=== PATIENT | female | born 1995 | race African-American/Black ===

== ENCOUNTER 2017-08-16 08:00 | Outpatient (CLI) | payer MEDICAID | END 2017-08-16 08:01 | disposition home or self-care (01) | LOC: LAB.R 08:00 | PROVIDERS: ATTEND Nurse Practitioner Obstetrics & Gynecology | DX: Z11.3 Encounter for screening for infections with a predominantly sexual mode of transmission (principal) | CPT/HCPCS: 87491; 87591 ==

== ENCOUNTER 2017-08-16 16:50 | Outpatient (CLI) | payer MEDICAID ==
[2017-08-16 17:12] LABS: BASOPHILS % (AUTO) 0.2 %; EOSINOPHILS # (AUTO) 0.2 10^3/uL (0.0-0.7); EOSINOPHILS % (AUTO) 1.5 %; HGB - HEMOGLOBIN 10.5 g/dL (12.0-16.0); LYMPHOCYTES # (AUTO) 2.5 10^3/uL (1.5-3.5); LYMPHOCYTES % (AUTO) 21.4 %; MEAN CORPUSCULAR HEMOGLOBIN 25.8 pg (27.0-31.0); MEAN CORPUSCULAR HGB CONC 32.5 g/dL (32.0-36.0); MEAN CORPUSCULAR VOLUME 79.2 fL (81.0-99.0); MEAN PLATELET VOLUME 9.3 fL (7.9-10.8); MONOCYTES # (AUTO) 0.7 10^3/uL (0.0-1.0); MONOCYTES % (AUTO) 5.8 %; NEUTROPHILS # (AUTO) 8.3 10^3/uL (1.5-6.6); NEUTROPHILS % (AUTO) 71.1 %; PLT - PLATELET COUNT 195 10^3/uL (130-450); RED BLOOD COUNT 4.08 10^6/uL (4.20-5.40); RED CELL DISTRIBUTION WIDTH 18.5 % (12.0-15.0); WHITE BLOOD COUNT 11.7 x10^3/uL (4.8-10.8)
[2017-08-16 17:36] LABS: BILIRUBIN,URINE NEGATIVE (NEGATIVE); GLUCOSE, URINE (UA) NEGATIVE (NEGATIVE); KETONES,URINE (UA) NEGATIVE (NEGATIVE); LEUKOCYTE ESTERASE, URINE LARGE (NEGATIVE); NITRITE,URINE NEGATIVE (NEGATIVE); OCCULT BLOOD,URINE NEGATIVE (NEGATIVE); PH,URINE 6.5 PH (5.0-7.5); PROTEIN,URINE NEGATIVE (NEGATIVE); UROBILINOGEN,URINE 0.2 (NORMAL) E.U./dL (NORMAL)
[2017-08-16 17:53] LABS: BACTERIA,URINE Many /HPF (None Seen); CLARITY,URINE CLOUDY (CLEAR); RBC,URINE 0-5 /HPF (0-5); SQUAMOUS EPITHELIAL CELL,UR MANY Squamous (<= Few); TRICHOMONAS,URINE PRESENT (None Seen); WBC CLUMPS,URINE PRESENT
[2017-08-17 11:05] LABS: HEPATITIS B SURFACE ANTIGEN NON-REACTIVE (NON-REACTIVE)
[2017-08-17 15:05] LABS: HEPATITIS C ANTIBODY NON-REACTIVE (NON-REACTIVE); HIV AG/AB 4TH GEN NON-REACTIVE (NON-REACTIVE)
== END 2017-08-16 16:51 | disposition home or self-care (01) ==
LOC: LAB 16:50
PROVIDERS: ATTEND Nurse Practitioner Obstetrics & Gynecology
DX: Z36.9 Encounter for antenatal screening, unspecified (principal)
CPT/HCPCS: 36415; 81001; 81599; 85025; 86762; 86803; 86850; 86900; 86901; 87340; 87389

== ENCOUNTER 2017-08-16 21:47 | Outpatient (CLI) | payer MEDICAID ==
--- NOTE | 2017-08-16 23:26 | Ultrasound Report ---
EXAM: LIMITED OBSTETRICAL ULTRASOUND EARLY SECOND TRIMESTER EXAM DATE: 08/16/2017 10:43 PM. CLINICAL HISTORY: ENCTR FOR SCREENING. Unknown LMP. Confirm dating. Late to seek care. COMPARISON: None. TECHNIQUE: Real-time sonographic evaluation of the fetus performed by the supervisor grinding. Multiple repre sentative static images were saved for review. DATING: EGA 19 weeks 3 days with KALYAN 01/07/2018 based on the current ultrasound. GENERAL EVALUATION Rob . Cardiac activity: 150 bpm. movement: Visualized. Presentation: Breech. Placenta: Anterior position. No evidence for previa. Amniotic fluid: Subjectively normal. MVP 4.3 cm. BIOMETRY Bi-Parietal Diameter (BPD): 4.4 cm, 19 weeks 3 days Head Circumference (HC): 16.4 cm, 19 weeks 1 day Abdominal Circumference (AC): 13.9 cm, 19 weeks 2 days Femur Length (FL): 3.0 cm, 19 weeks 1 day Estimated Weight: 282 g. MATERNAL STRUCTURES Uterus: Unremarkable. Cervix: Long and closed. IMPRESSION: 1. Rob live intrauterine with gestational age 19 weeks 3 days based on current US. 2. size is within expected limits for assigned dating. Note: Detailed anatomic survey at 18-22 weeks is recommended. [facility] Referring Provider Line: [phone] SITE ID: [id number]
--- NOTE | 2017-08-16 23:26 | Ultrasound Preliminary Report ---
Exam: US OB 14+ WEEKS IMPRESSION: 1. Rob live intrauterine with gestational age 19 weeks 3 days based on current US. 2. size is within expected limits for assigned dating. Note: Detailed anatomic survey at 18-22 weeks is recommended. [facility] SITE ID: [id number]
== END 2017-08-16 21:48 | disposition home or self-care (01) ==
LOC: DI 21:47
PROVIDERS: ATTEND Nurse Practitioner Obstetrics & Gynecology
DX: Z36.9 Encounter for antenatal screening, unspecified (principal); Z11.3 Encounter for screening for infections with a predominantly sexual mode of transmission; Z3A.19 19 weeks gestation of pregnancy
CPT/HCPCS: 36415; 76805; 81001; 81599; 85025; 86592; 86762; 86803; 86850; 86900; 86901; 87340; 87389; 87491; 87591

== ENCOUNTER 2017-10-02 12:32 | Outpatient (CLI) | END 2017-10-02 12:33 | disposition home or self-care (01) ==

== ENCOUNTER 2017-10-12 14:36 | Outpatient (CLI) | payer MEDICAID ==
[2017-10-12 15:52] LABS: MEAN CORPUSCULAR HEMOGLOBIN 28.6 pg (27.0-31.0); MEAN CORPUSCULAR HGB CONC 32.7 g/dL (32.0-36.0); MEAN CORPUSCULAR VOLUME 87.3 fL (81.0-99.0); MEAN PLATELET VOLUME 8.9 fL (7.9-10.8); RED BLOOD COUNT 3.5 10^6/uL (4.20-5.40); RED CELL DISTRIBUTION WIDTH 17.5 % (12.0-15.0); WHITE BLOOD COUNT 10.6 x10^3/uL (4.8-10.8)
== END 2017-10-12 14:37 | disposition home or self-care (01) ==
LOC: LAB 14:36
PROVIDERS: ATTEND Registered Nurse
DX: Z34.82 Encounter for supervision of other normal pregnancy, second trimester (principal)
CPT/HCPCS: 36415; 82950; 85027; 86850

== ENCOUNTER 2017-10-14 21:32 | Emergency (ER) | payer MEDICAID ==
[2017-10-14] MEDS ORDERED: predniSONE 20 MG TABLET PO STA (21:47)
--- NOTE | 2017-10-14 21:53 | ED Physician Documentation ---
History of Present Illness - Stated complaint Stated Complaint: HIVES - Chief complaint Chief Complaint: General - History obtained from History obtained from: Patient - History of Present Illness Timing: How many days ago (3) Pain level max: 0 Pain level now: 0 Improved by: nothing Worsened by: nothing - Additonal information Additional information: Patient is a 22-year-old female who is approximately 27 weeks . 3 days ago noticed a diffuse rash over her abdomen and arms as well as her thighs. This is papular in nature. It is itchy. Has not taken anything for this nor contacted her OB. No problems with the . States that this happened during her last as well and improved with a cream. It was not as extensive at that time. No fevers. States did use a new detergent, but stopped using this. Review of Systems Constitutional: denies: Fever, Chills Ears: denies: Ear pain Nose: denies: Rhinorrhea / runny nose, Congestion Throat: denies: Sore throat Cardiac: denies: Chest pain / pressure GI: denies: Nausea, Vomiting, Diarrhea : denies: Dysuria, Frequency, Hesitancy, Now EGA Musculoskeletal: denies: Neck pain, Back pain Neurologic: denies: Headache PD PAST MEDICAL HISTORY - Past Medical History Past Medical History: No - Past Surgical History Past Surgical History: No - Present Medications Home Medications: Ambulatory Orders Medication Instructions Recorded Confirmed Pnv No.122/Iron/Folic Acid 1 each PO 10/14/17 [ Multi Tablet] predniSONE [Prednisone] 40 mg PO DAILY #10 tablet 10/14/17 - Allergies Allergies/Adverse Reactions: Allergies Allergy/AdvReac Type Severity Reaction Status Date / Time No Known Drug Allergies Allergy Verified 10/14/17 21:40 - Living Situation Living Situation: reports: With family Living Arrangement: reports: At home - Social History Does the pt smoke?: No Does the pt drink ETOH?: No PD ED PE NORMAL - Vitals Vital signs reviewed: Yes - General General: Alert and oriented X 3, No acute distress - HEENT HEENT: Moist mucous membranes - Neck Neck: Supple, no meningeal sign - Cardiac Cardiac: RRR - Respiratory Respiratory: No respiratory distress, Clear bilaterally - Abdomen Abdomen: Soft, Non tender, Non distended - Derm Derm: Warm and dry, Other (Diffuse papular exanthem over the bilateral upper extremities, chest abdomen and thighs. Excoriation osorio present. No pustules. ) - Extremities Extremities: No calf tenderness / cord - Neuro Neuro: Alert and oriented X 3 Results - Vitals Vitals: Vital Signs - 24 hr 10/14/17 21:38 Temperature 36.7 C Heart Rate 95 Respiratory 16 Rate Blood Pressure 126/70 O2 Saturation 95 Oxygen O2 Source Room air PD MEDICAL DECISION MAKING - ED course Complexity details: considered differential, d/w patient ED course: Patient is a 22-year-old female who is currently 27 weeks with a diffuse papular exanthem. Unclear etiology. Will trial on steroids and see how she progresses. She is well-appearing, nontoxic. Afebrile. No evidence of cholestasis. No jaundice. Patient counseled regarding signs and symptoms for which I believe and urgent re-evaluation would be necessary. Patient with good understanding of and agreement to plan and is comfortable going home at this time This document was made in part using voice recognition software. While efforts are made to proofread this document, sound alike and grammatical errors may occur. - Sepsis Event Vital Signs: Vital Signs - 24 hr 10/14/17 21:38 Temperature 36.7 C Heart Rate 95 Respiratory 16 Rate Blood Pressure 126/70 O2 Saturation 95 Oxygen O2 Source Room air Departure - Departure Disposition: 01 Home, Self Care Clinical Impression: PUPPP (pruritic urticarial papules and plaques of ) Condition: Good Instructions: ED Dermatitis Non Specific Rash Follow-Up: Emma Sears, STAR, [employer] DEVEL[employer] [Provider Admit Priv/Credential] - Within 3 Days Prescriptions: predniSONE [Prednisone] 40 mg PO DAILY #10 tablet Comments: Return if you worsen. Take the steroids as prescribed and follow up with your doctor in 3 days for a recheck.
[2017-10-14 22:40] VITALS: BP 122/72
== END 2017-10-14 22:30 | disposition home or self-care (01) ==
LOC: ED 21:32
DX: O26.86 Pruritic urticarial papules and plaques of pregnancy (PUPPP) (principal); Z3A.27 27 weeks gestation of pregnancy
CPT/HCPCS: 99283; J7512

== ENCOUNTER 2017-11-03 11:51 | Outpatient (CLI) | payer MEDICAID | END 2017-11-03 11:52 | disposition home or self-care (01) | LOC: LAB.R 11:51 | PROVIDERS: ATTEND Registered Nurse | DX: R82.99 Other abnormal findings in urine (principal) | CPT/HCPCS: 87086 ==

== ENCOUNTER 2017-11-15 22:06 | Outpatient (CLI) | payer MEDICAID | END 2017-11-15 22:07 | disposition critical access hospital (66) | LOC: EMS 22:06 | PROVIDERS: ATTEND Surgery | DX: O99.89 Other specified diseases and conditions complicating pregnancy, childbirth and the puerperium (principal); R10.9 Unspecified abdominal pain; M54.5 Low back pain | CPT/HCPCS: A0425; A0429; A0999 ==

== ENCOUNTER 2017-11-15 22:10 | Outpatient (CLI) | payer MEDICAID ==
[2017-11-15 22:37] VITALS: BP 120/69
[2017-11-15 23:17] LABS: BILIRUBIN,URINE NEGATIVE (NEGATIVE); GLUCOSE, URINE (UA) NEGATIVE (NEGATIVE); KETONES,URINE (UA) >=80 mg/dL (NEGATIVE); LEUKOCYTE ESTERASE, URINE LARGE (NEGATIVE); NITRITE,URINE NEGATIVE (NEGATIVE); OCCULT BLOOD,URINE NEGATIVE (NEGATIVE); PROTEIN,URINE NEGATIVE (NEGATIVE); UROBILINOGEN,URINE 0.2 (NORMAL) E.U./dL (NORMAL)
[2017-11-15 23:25] LABS: CLARITY,URINE CLEAR (CLEAR); RBC,URINE 0-5 /HPF (0-5)
[2017-11-15 23:26] LABS: BACTERIA,URINE Few /HPF (None Seen); MUCUS,URINE Few Strands; SQUAMOUS EPITHELIAL CELL,UR MOD Squamous (<= Few)
== END 2017-11-15 23:45 | disposition home or self-care (01) ==
LOC: WFO 22:10 → FBP 22:25 → WFO 23:45
PROVIDERS: ATTEND Nurse Practitioner Obstetrics & Gynecology
DX: O47.03 False labor before 37 completed weeks of gestation, third trimester (principal); Z3A.32 32 weeks gestation of pregnancy
CPT/HCPCS: 81001; 87086; 99212

== ENCOUNTER 2017-11-21 14:05 | Outpatient (CLI) | payer MEDICAID ==
[2017-11-21 15:59] LABS: MUDS CUTOFF CONCENTRATIONS CUTOFF CONC BELOW:
[2017-11-21 16:20] LABS: AMPHETAMINE SCREEN,URINE NEGATIVE (NEGATIVE); BENZODIAZEPINES SCREEN, URINE NEGATIVE (NEGATIVE); COCAINE SCREEN URINE NEGATIVE (NEGATIVE); METHADONE SCREEN, URINE NEGATIVE (NEGATIVE); METHAMPHETAMINES SCREEN, URINE NEGATIVE (NEGATIVE); OPIATE SCREEN, URINE NEGATIVE (NEGATIVE); OXYCODONE SCREEN, URINE NEGATIVE (NEGATIVE); PROPOXYPHENE SCREEN, URINE NEGATIVE (NEGATIVE); TRICYCLIC ANTIDEPRESSANT,URINE NEGATIVE (NEGATIVE)
== END 2017-11-21 14:06 | disposition home or self-care (01) ==
LOC: LAB.R 14:05
PROVIDERS: ATTEND Registered Nurse
DX: Z34.83 Encounter for supervision of other normal pregnancy, third trimester (principal); R82.99 Other abnormal findings in urine
CPT/HCPCS: 80306; 87086

== ENCOUNTER 2017-11-21 14:23 | Outpatient (CLI) | payer MEDICAID ==
[2017-11-21 14:53] LABS: BASOPHILS % (AUTO) 0.1 %; EOSINOPHILS # (AUTO) 0.2 10^3/uL (0.0-0.7); EOSINOPHILS % (AUTO) 1.5 %; LYMPHOCYTES # (AUTO) 2.1 10^3/uL (1.5-3.5); LYMPHOCYTES % (AUTO) 17.5 %; MEAN CORPUSCULAR HEMOGLOBIN 28.8 pg (27.0-31.0); MEAN CORPUSCULAR HGB CONC 33.6 g/dL (32.0-36.0); MEAN CORPUSCULAR VOLUME 85.9 fL (81.0-99.0); MEAN PLATELET VOLUME 8.7 fL (7.9-10.8); MONOCYTES # (AUTO) 0.7 10^3/uL (0.0-1.0); MONOCYTES % (AUTO) 5.4 %; NEUTROPHILS # (AUTO) 9.2 10^3/uL (1.5-6.6); NEUTROPHILS % (AUTO) 75.5 %; PLT - PLATELET COUNT 188 10^3/uL (130-450); RED BLOOD COUNT 3.47 10^6/uL (4.20-5.40); RED CELL DISTRIBUTION WIDTH 15.8 % (12.0-15.0); WHITE BLOOD COUNT 12.2 x10^3/uL (4.8-10.8)
== END 2017-11-21 14:24 | disposition home or self-care (01) ==
LOC: LAB 14:23
PROVIDERS: ATTEND Registered Nurse
DX: O99.013 Anemia complicating pregnancy, third trimester (principal); Z34.83 Encounter for supervision of other normal pregnancy, third trimester; R82.99 Other abnormal findings in urine
CPT/HCPCS: 36415; 80306; 85025; 85027; 87086

== ENCOUNTER 2017-11-27 11:31 | Outpatient (CLI) | payer MEDICAID ==
[2017-11-27 15:13] VITALS: BP 121/60
== END 2017-11-27 16:00 | disposition home or self-care (01) ==
LOC: WFO 11:31 → FBP 11:34 → WFO 16:00
PROVIDERS: ATTEND Registered Nurse
DX: O46.93 Antepartum hemorrhage, unspecified, third trimester (principal); Z3A.34 34 weeks gestation of pregnancy
CPT/HCPCS: 99214

== ENCOUNTER 2017-12-06 08:00 | Outpatient (CLI) | payer MEDICAID | END 2017-12-06 08:01 | disposition home or self-care (01) | LOC: LAB.R 08:00 | PROVIDERS: ATTEND Registered Nurse | DX: Z36.85 Encounter for antenatal screening for Streptococcus B (principal) | CPT/HCPCS: 87081 ==

== ENCOUNTER 2017-12-26 12:05 | Outpatient (CLI) | payer MEDICAID ==
[2017-12-26 12:35] LABS: BASOPHILS % (AUTO) 0.3 %; EOSINOPHILS # (AUTO) 0.1 10^3/uL (0.0-0.7); EOSINOPHILS % (AUTO) 1.2 %; HGB - HEMOGLOBIN 10.6 g/dL (12.0-16.0); LYMPHOCYTES # (AUTO) 2.1 10^3/uL (1.5-3.5); LYMPHOCYTES % (AUTO) 20.8 %; MEAN CORPUSCULAR HEMOGLOBIN 29.6 pg (27.0-31.0); MEAN CORPUSCULAR HGB CONC 34.4 g/dL (32.0-36.0); MEAN CORPUSCULAR VOLUME 85.9 fL (81.0-99.0); MEAN PLATELET VOLUME 8.7 fL (7.9-10.8); MONOCYTES # (AUTO) 0.8 10^3/uL (0.0-1.0); MONOCYTES % (AUTO) 8.1 %; NEUTROPHILS % (AUTO) 69.6 %; PLT - PLATELET COUNT 171 10^3/uL (130-450); RED BLOOD COUNT 3.58 10^6/uL (4.20-5.40); RED CELL DISTRIBUTION WIDTH 14.6 % (12.0-15.0); WHITE BLOOD COUNT 10.1 x10^3/uL (4.8-10.8)
[2017-12-26 12:44] LABS: ALBUMIN 3.3 g/dL (3.2-5.5); ALBUMIN/GLOBULIN RATIO 0.9 (1.0-2.2); BILIRUBIN,TOTAL 0.3 mg/dL (0.2-1.0); CALCIUM 9.1 mg/dL (8.5-10.3); CREATININE 0.4 mg/dL (0.4-1.0)
== END 2017-12-26 12:06 | disposition home or self-care (01) ==
LOC: LAB 12:05
PROVIDERS: ATTEND Registered Nurse
DX: R42 Dizziness and giddiness (principal)
CPT/HCPCS: 36415; 80053; 85025

== ENCOUNTER 2018-01-04 17:50 | Inpatient (IN) | payer MEDICAID ==
[2018-01-04] MEDS ORDERED: ONDANSETRON 4 MG/2 ML VIAL IVP PRN (18:13)
[2018-01-04] MEDS ORDERED: SODIUM CHLORIDE FLUSH 0.9% 10 ML SYRINGE IVP PRN (18:13)
[2018-01-04] MEDS ORDERED: fentaNYL 100 MCG/2 ML VIAL IVP PRN (18:13)
--- NOTE | 2018-01-04 18:28 | HISTORY & PHYSICAL EXAMINATION ---
Admit History - Instructions [place]/Slash: -Left hand click circles element as positive or present. -Right hand click slashes element as negative or not present. - Visit Reason Visit Reason: Membranes rupture - : 3 Parity: 2 Premature: 0 Ectopic: 0 : 0 Care: positive: [facility] Risk/History: positive: None Complications This : positive: None Smoking Status: Never smoker - Mother's Labs Mother's Blood Type: positive: O Mother's RH: positive: Positive GBS: positive: Group B Strep Positive Rubella Status: positive: Immune Meds/Allgy - Home Medications Home Medications: Ambulatory Orders Medication Instructions Recorded Confirmed Pnv No.122/Iron/Folic Acid 1 each PO 10/14/17 [ Multi Tablet] predniSONE [Prednisone] 40 mg PO DAILY #10 tablet 10/14/17 - Allergies Allergies/Adverse Reactions: Allergies Allergy/AdvReac Type Severity Reaction Status Date / Time No Known Drug Allergies Allergy Verified 10/14/17 21:40 Review of Systems - Constitutional Constitutional: denies: Fatigue, Fever, Chills, Malaise, Weakness - Eyes Eyes: denies: Pain, Irritation, Blurred vision, Spots in vision, Dipolpia - Cardiovascular Cariovascular: denies: Irregular heart rate, Palpitations, Chest pain, Edema - Respiratory Respiratory: denies: Cough, Wheezing - Gastrointestinal Gastrointestinal: denies: Abdominal pain, Constipation, Diarrhea, Nausea, Vomiting - Genitourinary Genitourinary: denies: Dysuria, Frequency, Urgency - Integumentary Integumentary: denies: Rash, Pruritis - Neurological Neurological: denies: General weakness, Headache, Dizziness - Psychiatric Psychiatric: denies: Depression, Anxiety Physical - Abdominal Exam Vital Signs: Temp Pulse Resp BP Pulse Ox 36.8 C 90 16 126/66 100 01/04/18 18:17 01/04/18 18:17 01/04/18 18:17 01/04/18 18:17 01/04/18 18:17 Contraction Frequency (min/apart): 9-17 Contraction Intensity: positive: Mild Uterine Resting Tone: positive: Soft - Monitoring Heart Rate Baseline: 130 Strip Review: positive: Category I - Presentation Presentation: positive: Vertex - Vaginal Exam Membranes: positive: Membranes ruptured Dilation (in cm): 3 Effacement (%): 70 Station: positive: -2 Cervical Position: positive: Posterior - Speculum Exam Speculum Exam Performed: positive: No Findings: positive: Gross leak Plan for Labor - Plan For Labor I expect patient to be DC'd or transferred within 96 hours.: Yes Plan for Labor: HPI: This 22yo @ 39.5 wks gestation by 19.3wk U/S presents today to L&D at 1800 with c/o large gush of clear fluid vaginally at approximately 1700. She reports mild contractions every 20 minutes. She denies VB. She reports +FM. She denies HERRERA, visual disturbances, RUQ or epigastric pain. She is a patient of [facility] whom was late to seek care and had her first visit at 19wks gestation. Dates established by 19.3wk U/S. Her has been complicated only by iron deficiency anemia, and GBS positive status. She is currently taking PNV and FeSO4 tid. 12/28/2017 Hgb 10.6. SVE upon arrival /-2, vertex, posterior, medium consistency - unchanged from office exam 2 days ago. Grossly ruptured membranes, clear. Pt's sister states they absolutely do not want to initiate pitocin at this time. They prefer to delay initiation of misoprostol despite recommendations and reviewed evidence, as well as risks of delaying active management. Both patient and her sister appear irritated. Dating criteria: 1.) LMP - unsure 2.) Initial Ultrasound at 19.3wks gestation to establish dates 3.) Serial exams 23-39wks agree OB History: G1: TSVD G2: TSVD G3: current - anemia; GBS positive PMHx: iron deficiency anemia Surgical Hx: None Family hx: None reported Medications: PNV, FeSO4 324mg tid Allergies: NKDA Physical Exam: A&O x4 Heart RRR w/o M/G/R Lungs CTAB Abdomen gravid, soft, nontender Contractions occasional every 7-20 minutes with soft resting tone Bilateral LE's no edema Mood irritable Labs: O pos, antibody neg RPR non-reactive HIV non-reactive Hep B non-reactive Hep C non-reactive Rubella immune GC/CT neg Ultrasounds: 08/21/2017=initial reveals single, viable intrauterine at 19.3wks gestation 10/02/2017 FAS WNL, anterior/fundal placenta, no previa. EFW 59th percentile. Size c/w previously established dating 28 week labs: 1 Hour GTT 112 Antibody neg Hgb 10.0 Repeat CBC 11/03/2017: 10.0; PLT 188 Repeat CBC 12/26/2017: 10.6 GBS positive Assessment: 22yo @ 39.5wks gestation by 19.3wk U/S PROM FHR category I GBS positive Plan: Continuous monitoring Initiate misoprostol 50mcg q 4 hours for pre-induction cervical ripening Initiate penicillin for GBS prophylaxis per protocol Anticipate spontaneous vaginal delivery Reviewed plan of care with sister, pt, and RN at the bedside. They verbalized understanding and agree to above plan. They deny further questions or concerns at this time.
[2018-01-04] MEDS ORDERED: PENICILLIN G POTASSIUM 5,000,000 UNIT in SODIUM CHLORIDE 0.9% MINIBAG 100 ML IV ONE (19:00)
[2018-01-04 19:45] LABS: BASOPHILS % (AUTO) 0.2 %; EOSINOPHILS # (AUTO) 0.2 10^3/uL (0.0-0.7); EOSINOPHILS % (AUTO) 1.9 %; HGB - HEMOGLOBIN 10.8 g/dL (12.0-16.0); LYMPHOCYTES # (AUTO) 2.2 10^3/uL (1.5-3.5); LYMPHOCYTES % (AUTO) 17.9 %; MEAN CORPUSCULAR HEMOGLOBIN 29.1 pg (27.0-31.0); MEAN CORPUSCULAR HGB CONC 33.7 g/dL (32.0-36.0); MEAN CORPUSCULAR VOLUME 86.5 fL (81.0-99.0); MEAN PLATELET VOLUME 8.9 fL (7.9-10.8); MONOCYTES # (AUTO) 0.7 10^3/uL (0.0-1.0); MONOCYTES % (AUTO) 5.6 %; NEUTROPHILS # (AUTO) 8.9 10^3/uL (1.5-6.6); NEUTROPHILS % (AUTO) 74.4 %; PLT - PLATELET COUNT 164 10^3/uL (130-450); RED CELL DISTRIBUTION WIDTH 14.4 % (12.0-15.0)
[2018-01-04] MEDS: LACTATED RINGERS 1,000 ML IV SCH ×2 (20:25→23:27)
[2018-01-04] MEDS: SODIUM CHLORIDE FLUSH 0.9% 10 ML SYRINGE IVP SCH (20:46)
[2018-01-04] MEDS ORDERED: OXYTOCIN/SODIUM CHLORIDE 500 ML IV SCH (21:00)
[2018-01-04] MEDS ORDERED: PENICILLIN G POTASSIUM 2,500,000 UNIT in SODIUM CHLORIDE 0.9% 100ML 100 ML IV SCH (23:00)
[2018-01-04] MEDS ORDERED: fent/BUPIV 2 MCG/0.125% 0 ML EP ONE (23:14)
[2018-01-04] MEDS ORDERED: BUPIVACAINE 0.25% PF 10 ML VIAL ONE (23:32)
--- NOTE | 2018-01-04 23:35 | ANESTHESIA ---
Pre-Anesthesia VS, & Labs - Diagnosis active labor - Procedure vaginal delivery Vital Signs: Temp Pulse Resp BP Pulse Ox 36.8 C 90 16 126/66 100 01/04/18 18:17 01/04/18 18:17 01/04/18 18:17 01/04/18 18:17 01/04/18 18:17 Vital Signs - 24 hr 01/04/18 18:17 Temperature 36.8 C Heart Rate [ 90 Monitoring electrodes] Respiratory 16 Rate Blood Pressure 126/66 [Right Brachial artery] O2 Saturation 100 Height 5 ft 7 in Weight (kg) 99.337 kg Body Mass Index 33.0 Height 5 ft 7 in Weight (kg) 99.337 kg Body Mass Index 33.0 - Is Patient ?: Yes - Lab Results Current Lab Results: Laboratory Tests 01/04/18 19:31: WBC 12.0 H, RBC 3.70 L, Hgb 10.8 L, Hct 32.0 L, MCV 86.5, MCH 29.1, MCHC 33.7, RDW 14.4, Plt Count 164, MPV 8.9, Neut # (Auto) 8.9 H, Lymph # (Auto) 2.2, Bailey # (Auto) 0.7, Eos # (Auto) 0.2, Baso # (Auto) 0.0, Absolute Nucleated RBC 0.00, Nucleated RBC % 0.0 Fish Bones: 01/04/18 19:31 Home Medications and Allergies Home Medications: Ambulatory Orders Medication Instructions Recorded Confirmed Pnv No.122/Iron/Folic Acid 1 each PO 10/14/17 [ Multi Tablet] Active Medications Fentanyl (Fentanyl) 50 mcg IVP Q1H PRN PRN Reason: PAIN Lactated Ringer's (Lr) 1,000 mls @ 150 mls/hr IV .Q6H40M MARNI Last Admin: 01/04/18 23:27 Dose: 150 mls/hr Penicillin G Potassium 2,500, (000 unit/ Sodium Chloride) 100 mls @ 200 mls/hr IV Q4H MARNI Oxytocin/Sodium Chloride (Pitocin/Sodium Chloride) 500 mls @ 1 mls/hr IV TITR MARNI; Protocol Last Admin: 01/04/18 20:45 Dose: 1 milliunit/min, 1 mls/hr Ondansetron HCl (Zofran Inj) 4 mg IVP Q4H PRN PRN Reason: Nausea / Vomiting Sodium Chloride (Normal Saline Flush 0.9%) 10 ml IVP PRN PRN PRN Reason: NEEDED PER PROVIDER ORDERS Sodium Chloride (Normal Saline Flush 0.9%) 10 ml IVP 0100,0900,1700 MARNI Last Admin: 01/04/18 20:46 Dose: 10 ml Pnv No.122/Iron/Folic Acid [ Multi Tablet] 1 each PO 10/14/17 Allergies/Adverse Reactions: Allergies Allergy/AdvReac Type Severity Reaction Status Date / Time No Known Drug Allergies Allergy Verified 10/14/17 21:40 Anes History & Medical History - Anesthetic History Family history of Anesthesia Complications: Denies Family history of Malignant Hyperthermia: Denies - Medical History Cardiovascular: reports: None Pulmonary: reports: None Gastrointestinal: reports: None Urinary: reports: None Neuro: reports: None Musculoskeletal: reports: None Endocrine/Autoimmune: reports: None Blood Disorders: reports: Anemia Skin: reports: None Smoking Status: Never smoker Psychosocial: reports: No issues indicated - Obstetrical History : 3 Parity: 2 Events: positive: None Complications: positive: None Exam General: Alert, Oriented x3, Other (Acute pain) Dental: WNL Mouth Openin Fingerbreadth Neck Mobility: Normal Mallampati classification: II Thyromental Distance: 4-6 cm Mental/Cognitive Status: Alert/Oriented X3, Normal for patient Cognitive Status: Within normal limits Plan Anesthesia Type: Spinal (Patient is 9cm dilated and multiparous. Will place labor spinal for immediate control of pain. Patient agrees.) Consent for Procedure(s) Verified and Reviewed: Yes Code Status: Attempt Resuscitation ASA classification: 2-Mild systemic disease Is this case an emergency?: No
[2018-01-04] MEDS ORDERED: fentaNYL 100 MCG/2 ML VIAL ONE (23:37)
[2018-01-05] MEDS ORDERED: HYDROCORTISONE/PRAMOXINE 10 GM PR PRN (00:08)
[2018-01-05] MEDS ORDERED: OXYTOCIN/SODIUM CHLORIDE 250 ML IV ONE (00:08)
[2018-01-05] MEDS: IBUPROFEN 800 MG TABLET PO SCH ×4 (00:26→22:15)
[2018-01-05] MEDS: diphenhydrAMINE 25 MG CAPSULE PO PRN ×2 (00:26→04:48)
[2018-01-05] MEDS: ACETAMINOPHEN 500 MG TABLET PO SCH ×3 (00:26→16:47)
--- NOTE | 2018-01-05 00:30 | DELIVERY NOTE ---
Delivery Note - Labor Labor: positive: Augmented by oxytocin - Delivery Method Delivery Method: positive: Spontaneous vaginal delivery - Presentation Presentation: positive: Vertex, EVERT - left occiput anterior - Nuchal Cord Nuchal Cord: positive: Present, Reduced - Amniotic Fluid Description Amniotic Fluid Description: positive: Clear - Episiotomy Type Episiotomy Type: positive: None - Laceration Laceration: positive: None - Delivery Outcome Delivery Outcome: positive: Livebirth - [place] : positive: Placed in direct skin contact with mother, Stimulated, Warmed, [place] used [place] sex: positive: Male - Cord Cord: positive: 3 vessels - Placenta Placenta: positive: Intact, Spontaneous - Estimated Blood Loss Estimated Blood Loss (in cc): 200 - Post Delivery Events Post Delivery Events: positive: No post delivery events - Delivery Comments (Free Text/Narrative) Delivery Comments (Free Text/Narrative): Labor: This 22yo @ 39.5 wks gestation by 19.3wk U/S who presented on 01/04/2018 at 1800 with PROM at term gestation. Upon her arrival she was noted to have grossly ruptured membranes with a moderate amount of clear fluid. Her cervix was 3/70/-2, vertex, posterior, medium consistency. FHR pattern demonstrated a baseline 120-130 in a category I pattern and intermittent periods of category II throughout labor - overall reassuring. She tested positive for GBS and penicillin initiated upon admit per protocol and she received her loading dose of penicillin but delivered prior to receiving second dose. She was augmented with pitocin via IV which was titrated per protocol for a max infusion rate of 2mU/min. Patient progressed rapidly to 8-9/100/+1 and requested epidural for pain management. Epidural placed and pt experienced immediate, spontaneous urge to push and cervix was assessed to be c/c/+2 at 2348. : Normal SVB of a viable male infant named Harrison. Loose nuchal cord x1 easily reduced. Delivery occurred on 01/04/2018 @ 2350. 's 9/9 at 1 and 5 min respectively. The was placed on maternal abdomen, stimulated dried, and placed skin to skin. The umbilical cord was allowed to stop pulsating at which time it was doubly clamped by CNM and cut by patient's sister. Cord blood was obtained. Placenta delivered spontaneously and intact at 2358. 3VC. Pitocin administered via IV for hemostasis. EBL 200mL. Fourth Stage: Uterine fundus firm and there is no excessive bleeding. The perineum, vagina, and cervix were inspected and found to be intact. Skin to skin initiated. Family bonding well. Both mother and baby were left in stable condition.
[2018-01-05] MEDS: SODIUM CHLORIDE FLUSH 0.9% 10 ML SYRINGE IVP SCH ×2 (03:59→06:51)
[2018-01-05 06:53] LABS: BASOPHILS % (AUTO) 0.3 %; EOSINOPHILS # (AUTO) 0.3 10^3/uL (0.0-0.7); EOSINOPHILS % (AUTO) 2.3 %; HGB - HEMOGLOBIN 9.7 g/dL (12.0-16.0); LYMPHOCYTES # (AUTO) 2.2 10^3/uL (1.5-3.5); LYMPHOCYTES % (AUTO) 17.7 %; MEAN CORPUSCULAR HEMOGLOBIN 29.2 pg (27.0-31.0); MEAN CORPUSCULAR HGB CONC 33.9 g/dL (32.0-36.0); MEAN CORPUSCULAR VOLUME 86.2 fL (81.0-99.0); MEAN PLATELET VOLUME 9.1 fL (7.9-10.8); MONOCYTES % (AUTO) 8.5 %; NEUTROPHILS # (AUTO) 8.7 10^3/uL (1.5-6.6); NEUTROPHILS % (AUTO) 71.2 %; PLT - PLATELET COUNT 142 10^3/uL (130-450); RED BLOOD COUNT 3.31 10^6/uL (4.20-5.40); RED CELL DISTRIBUTION WIDTH 14.6 % (12.0-15.0); WHITE BLOOD COUNT 12.2 x10^3/uL (4.8-10.8)
[2018-01-05] MEDS: DOCUSATE SODIUM 100 MG CAPSULE PO SCH ×2 (08:12→22:15)
[2018-01-05] MEDS ORDERED: SIMETHICONE CHEW 80 MG TABLET PO SCH (09:00)
--- NOTE | 2018-01-05 09:01 | PROVIDER PROGRESS NOTE ---
Subjective - Subjective Subjective: S: Bonding well with baby. with some difficulty getting baby to remain at the breast for a feed. Has hand expressed and syringe fed. States she is feeling somewhat frustrated. Moderate pain control with discomfort associated with cramping during nursing. Bleeding decreased and is light. Mood is irritable. Sister supportive at the bedside. O: BP 128/65, T 36.7, HR 87, RR 16 Hgb 10.8-->9.7 PLT 164-->142 Heart RRR w/o M/G/R, lungs CTAB, abdomen soft and nontender with fundus firm at U-2. Perineum intact and without edema. Light lochia rubra. Bilateral LE's no edema. A: 22yo -->P3 PPD#1 s/p TSVD of viable male Perineum intact GBS positive x 1 dose penicillin P: Continue routine pp care and medications Order entered for pt to receive FeSO4 325mg tid as previously taking at home secondary to iron deficiency anemia. Special attention to today Pt verbalized understanding and agrees to above plan. Denies further questions or concerns at this time. Plan for discharge home tomorrow. Objective - Vital Signs/Intake & Output Vital Signs: Vital Signs x48h Temp Pulse Resp BP Pulse Ox 01/05/18 08:04 36.8 C 67 18 132/73 H 100 01/05/18 03:52 87 16 128/65 01/05/18 03:47 36.7 C 92 16 137/75 H 99 01/05/18 02:49 76 16 131/62 H 01/05/18 01:46 36.7 C 73 16 130/66 01/05/18 01:31 74 16 125/60 01/05/18 01:16 69 129/55 L 01/05/18 01:01 85 114/73 Intake & Output: Intake & Output 01/02/18 01/03/18 01/04/18 01/05/18 23:59 23:59 23:59 23:59 Intake Total 555 1500 Output Total 1400 Balance 555 100 - Lab Results Fish Bones: 01/05/18 05:45 Other Labs: Lab Results x24hrs 01/05/18 01/04/18 Range/Units 05:45 19:31 WBC 12.2 H 12.0 H (4.8-10.8) x10^3/uL RBC 3.31 L 3.70 L (4.20-5.40) 10^6/uL Hgb 9.7 L 10.8 L (12.0-16.0) g/dL Hct 28.6 L 32.0 L (37.0-47.0) % MCV 86.2 86.5 (81.0-99.0) fL MCH 29.2 29.1 (27.0-31.0) pg MCHC 33.9 33.7 (32.0-36.0) g/dL RDW 14.6 14.4 (12.0-15.0) % Plt Count 142 164 (130-450) 10^3/uL MPV 9.1 8.9 (7.9-10.8) fL Neut # (Auto) 8.7 H 8.9 H (1.5-6.6) 10^3/uL Lymph # (Auto) 2.2 2.2 (1.5-3.5) 10^3/uL [place] # (Auto) 1.0 0.7 (0.0-1.0) 10^3/uL Eos # (Auto) 0.3 0.2 (0.0-0.7) 10^3/uL Baso # (Auto) 0.0 0.0 (0.0-0.1) 10^3/uL Absolute Nucleated RBC 0.00 0.00 x10^3/uL Nucleated RBC % 0.0 0.0 /100WBC
[2018-01-05] MEDS: FERROUS SULFATE 325 MG TABLET PO SCH ×2 (10:37→14:32)
[2018-01-06] MEDS: ACETAMINOPHEN 500 MG TABLET PO SCH ×2 (01:08→08:51)
[2018-01-06] MEDS: FERROUS SULFATE 325 MG TABLET PO SCH (01:09)
[2018-01-06] MEDS: IBUPROFEN 800 MG TABLET PO SCH (04:36)
--- NOTE | 2018-01-06 08:27 | Discharge Plan ---
Discharge Plan Disposition: 01 Home, Self Care Condition: Good Diet: Regular Activity Restrictions: No Restrictions Shower Restrictions: No Driving Restrictions: No No Smoking: If you smoke, Please STOP! Call for help. Follow-up with: Jillian Harmon CNM, ARNP [Provider Admit Priv/Credential] -
[2018-01-06] MEDS: DOCUSATE SODIUM 100 MG CAPSULE PO SCH (08:52)
--- NOTE | 2018-01-06 08:58 | PROVIDER PROGRESS NOTE ---
Subjective - Subjective Subjective: FINAL PROGRESS NOTE: S: Bonding well with baby. She states she is not confident in her and felt like giving up last night secondary to the nursing support grabbing her breasts. This morning she is feeling better about and was able to feed successfully early this morning for an extended period of time. Baby is sleeping soundly in the bassinet at the bedside. Pain well controlled with tylenol and ibuprofen. Bleeding decreased and is light. Pt strongly desires to go home today. She states she feels well supported from her sister. O: BP 135/70, T 36.7, HR 84, RR 18 Heart RRR w/o M/G/R, lungs CTAB, abdomen soft, nontender with fundus firm at U- 2. Perineum comfortable. Light lochia rubra. Bilateral LE's no edema. A: 22yo -->P3 PPD#2 s/p TSVD of viable male Perineum intact P: Reviewed self care and warning signs. Advised OTC tylenol and ibuprofen for pain management. Encouraged continuation of PNV while . Plans to f/u with CNM at [facility] in 1 week for support visit and in 3 weeks for routine visit. She verbalized understanding and agrees to above plan. She denies further questions or concerns at this time. Objective - Vital Signs/Intake & Output Vital Signs: Vital Signs x48h Temp Pulse Resp BP Pulse Ox 01/06/18 04:30 36.7 C 84 18 135/70 H 100 Intake & Output: Intake & Output 01/03/18 01/04/18 01/05/18 01/06/18 23:59 23:59 23:59 23:59 Intake Total 555 1500 Output Total 1400 Balance 555 100 - Lab Results Fish Bones: 01/05/18 05:45
[2018-01-06 09:41] VITALS: BP 136/82
--- NOTE | 2018-01-06 21:50 | DISCHARGE SUMMARY ---
Physician: GABE Lees DATE OF ADMISSION: 01/04/2018 DATE OF DISCHARGE: 01/06/2018 DIAGNOSES ON ADMISSION: 1. A 22-year-old G3, P2-0-0-2 at 39 and 5 weeks' gestation by 19-week ultrasound. 2. Spontaneous rupture of membranes. 3. Group B streptococcus positive. DIAGNOSIS ON DISCHARGE: 1. A 22-year-old G3, P3-0-0-3, status post spontaneous vaginal delivery. 2. . 3. Perineum intact. BRIEF HISTORY: The patient is a patient of [facility] who presented on 01/04/2018 w ith complaints of leakage of fluid. Upon her arrival, she was noted to have grossly ruptured membran es with a moderate amount of clear fluid, and her cervix was 3 cm dilated, 70% effaced, and a -2 stat ion in a vertex position. She was noted to be GBS positive, and penicillin was initiated upon admiss ion. Secondary to precipitous delivery, she received only a loading dose of penicillin. She was aug mented with Pitocin via IV, which was titrated per protocol for a max infusion rate of 2 mU per minut e. She progressed rapidly and received an epidural for pain management. She spontaneously delivered a viable male . Delivery occurred on 01/04/2018 at 2350. Apgars were 9 and 9 at 1 and 5 lisha norris, respectively. The perineum, vagina and cervix were inspected and found to be intact. EBL 200 m L. She has been doing well in her course. She is ambulating and tolerating a regular diet. She is with some difficulty but overall doing well, and the baby has not lost an unacce ptable amount of weight. The patient's perineum is comfortable, and her lochia is normal. She has b een given precautions to call if she has any worsening fevers, chills, abdominal pain, increased vagi nal bleeding, depression, foul-smelling vaginal discharge. She verbalized understanding a nd agrees to the above plan. She intends to follow up with myself at [facility] in 1 week for a support visit and then in 3 weeks for a routine visit. She denies further questions or concerns at this time. TD: 01/06/2018 09:11
== END 2018-01-06 13:00 | disposition home or self-care (01) | DRG 775 ==
LOC: WFO 17:50 → FBP 17:57 → WFO 18:12 → EEVIPCON 18:13 → FBP 18:13
PROVIDERS: ADMIT Nurse Practitioner Obstetrics & Gynecology; ATTEND Nurse Practitioner Obstetrics & Gynecology
PROC: 10E0XZZ Delivery of Products of Conception, External Approach (ICD-10-PCS; principal; 2018-01-05)
DX: O99.824 Streptococcus B carrier state complicating childbirth (principal); Z37.0 Single live birth; O99.013 Anemia complicating pregnancy, third trimester; Z3A.39 39 weeks gestation of pregnancy
CPT/HCPCS: 36415; 85025; 99211

== ENCOUNTER 2018-09-18 11:02 | Outpatient (CLI) | payer MEDICAID ==
--- NOTE | 2018-09-18 13:24 | Ultrasound Report ---
Reason: POSITIVE PREG TEST Procedure Date: 09/18/2018 Accession Number: [id number] / [id number] Procedure: US - OB First Trimester CPT Code: FULL RESULT: EXAM: FIRST TRIMESTER OBSTETRIC ULTRASOUND (Less than 11 weeks) EXAM DATE: 09/18/2018 12:10 PM. CLINICAL HISTORY: POSITIVE PREG TEST. LMP: Unknown. COMPARISONS: OB 14+ WEEKS 08/16/2017 10:02 PM. TECHNIQUE: Transabdominal and transvaginal ultrasound examination with static image documentation. CLINICAL DATES: EGA 17 weeks 4 days with KALYAN 02/22/2019 based on LMP. Patient has unsure dates. ASSESSMENT: Embryo: CRL (crown-rump length) 59.2 mm = 12 weeks 3 days. Cardiac activity: 169 beats per minute. Yolk sac: Not visualized. Amniotic fluid: Not accurately assessed at this gestational age. Early placenta: Not visible at this gestational age. Other: No perigestational fluid collection demonstrated. MATERNAL STRUCTURES: Uterus: Anteverted/Retroverted. Unremarkable. Cervix: Closed. Right Ovary/Adnexa: Right ovary is not visualized. No adnexal mass. Left Ovary/Adnexa: Left ovary is not visualized. No adnexal mass. Free Fluid: None. Other: Limited anatomic evaluation. IMPRESSION: Single viable intrauterine at EGA 12 weeks 3 days with KALYAN 03/30/2019 based on crown-rump length. Patient has unsure dates. [facility]
== END 2018-09-18 11:03 | disposition home or self-care (01) ==
LOC: DI 11:02
PROVIDERS: ATTEND Nurse Practitioner Obstetrics & Gynecology
DX: Z32.01 Encounter for pregnancy test, result positive (principal)
CPT/HCPCS: 76801

== ENCOUNTER 2018-09-25 08:00 | Outpatient (CLI) | payer MEDICAID ==
[2018-09-25 22:24] LABS: TRICHOMONAS VAGINALIS DNA POSITIVE (NEGATIVE)
== END 2018-09-25 23:59 | disposition home or self-care (01) ==
LOC: LAB.R 08:00
PROVIDERS: ATTEND Nurse Practitioner Obstetrics & Gynecology
DX: Z36.89 Encounter for other specified antenatal screening (principal)
CPT/HCPCS: 87491; 87591; 87661

== ENCOUNTER 2018-09-25 08:00 | Outpatient (CLI) | payer MEDICAID ==
[2018-09-25 14:35] LABS: BILIRUBIN,URINE NEGATIVE (NEGATIVE); GLUCOSE, URINE (UA) NEGATIVE (NEGATIVE); KETONES,URINE (UA) NEGATIVE (NEGATIVE); LEUKOCYTE ESTERASE, URINE MODERATE (NEGATIVE); NITRITE,URINE NEGATIVE (NEGATIVE); OCCULT BLOOD,URINE NEGATIVE (NEGATIVE); PH,URINE 7.5 PH (5.0-7.5); PROTEIN,URINE NEGATIVE (NEGATIVE); UROBILINOGEN,URINE 0.2 (NORMAL) E.U./dL (NORMAL)
[2018-09-25 14:36] LABS: CLARITY,URINE CLEAR (CLEAR)
[2018-09-25 14:51] LABS: BACTERIA,URINE Rare /HPF (None Seen); RBC,URINE None Seen /HPF (0-5); SQUAMOUS EPITHELIAL CELL,UR FEW Squamous (<= Few)
== END 2018-09-25 23:59 | disposition home or self-care (01) ==
LOC: LAB.F 08:00
PROVIDERS: ATTEND Nurse Practitioner Obstetrics & Gynecology
DX: Z36.89 Encounter for other specified antenatal screening (principal)
CPT/HCPCS: 81001; 87086; 87491; 87591; 87661